=== PATIENT | male | born 2000 | race Caucasian/White ===

== ENCOUNTER 2021-03-28 19:25 | Emergency (ER) | payer OTHER ==
[~2021-03-28] VITALS: Ht 182.9 cm; Wt 64.5 kg
[2021-03-28] MEDS ORDERED: LIDOCAINE 2% MDV 20ML VIAL SC ONE (20:15)
--- NOTE | 2021-03-28 20:20 | REP ---
INDICATION: trauma middle finger COMPARISON: None. TECHNIQUE: Four views left 3rd digit. FINDINGS: There is a comminuted displaced fracture of the tuft of the 3rd distal phalanx. There is soft tissue disruption in that region. Remaining visualized osseous structures are intact. IMPRESSION: Comminuted displaced fracture of the tuft of the 3rd distal phalanx with associated soft tissue disruption. <Electronically signed by Amador Tineo > 03/28/21 2017
[2021-03-28] MEDS ORDERED: ceFAZolin SOD 2 GM in IV 1 EA IV ONE (21:50)
[2021-03-28] MEDS: ceFAZolin SOD 1 GM in D5W MINI-BAG PLUS 50 ML IV SCH ×2 (22:12→23:16)
[2021-03-28] MEDS ORDERED: KETOROLAC 30 MG/ML 1ML VIAL IV ONE (22:50)
[2021-03-28 23:11] LABS: RSV AMPLIFICATION NEGATIVE (NEGATIVE)
[2021-03-29 00:42] VITALS: BP 161/75
== END 2021-03-29 00:54 | disposition short-term general hospital (02) ==
LOC: M ED 19:25
DX: S62.633B Displaced fracture of distal phalanx of left middle finger, initial encounter for open fracture (principal); W23.0XXA Caught, crushed, jammed, or pinched between moving objects, initial encounter; Y92.138 Other place on military base as the place of occurrence of the external cause; Y99.1 Military activity; F17.210 Nicotine dependence, cigarettes, uncomplicated
CPT/HCPCS: 73140; 87631; 96365; 96375; 99284; J0690; J1885